=== PATIENT | male | born 1985 | race Caucasian/White ===

== ENCOUNTER → 2019-07-19 10:05 | Outpatient (CLI) | payer SELFPAY ==
[2019-07-19 10:42] LABS: Influenza A - CEPHEID Flu A NEGATIVE (NEGATIVE); Influenza B - CEPHEID Flu B NEGATIVE (NEGATIVE)
== END ==
PROVIDERS: Visit Provider Physician Assistant
DX: R05 Cough (principal)
CPT/HCPCS: 87502

== ENCOUNTER 2019-11-28 14:31 | Emergency (ER) | payer SELFPAY ==
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
[2019-11-28 14:41] VITALS: PULSE 72
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
[2019-11-28] MEDS: CYCLOBENZAPRINE 10 MG TABLET PO (15:45)
[2019-11-28] MEDS: ACETAMINOPHEN 325 MG TABLET 650 MG PO (15:45)
[2019-11-28] MEDS: IBUPROFEN 400 MG TABLET 800 MG PO (15:45)
[2019-11-28] MEDS: LIDOCAINE PATCH 1 EACH ADH..PATCH TOP (15:45)
[2019-11-28 15:52] LABS: Bacteria Urine Occasional (0-1); Culture Indicated Urine Cult Not Indicated; Granular Casts Urine 5-10/LPF; Hyaline Casts Urine 1-5/LPF; Mucus Urine 1+ (Negative); RBC Urine 0-1/HPF (0-5/HPF); Squamous Epithelial Cell Urine 0-1 /HPF (0-5/HPF); WBC Urine 1-5/HPF (0-5/HPF)
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
--- NOTE | 2019-11-28 17:23 | PC.NURSE ---
Teaching done on splint usage and things to look out for. Pt and spouse verbalizes understanding. Given opportunity to ask questions and denies concerns at this time.
[2019-11-28] MEDS: CYCLOBENZAPRINE 10 MG PREPACK 1 BOTTLE MISC (17:58)
[2019-11-28] MEDS: HYDROCODONE/ACET 5/325 PREPACK 1 BOTTLE MISC (17:58)
[2019-11-28 18:08] VITALS: BP 122/70; PULSE 72; RESP 16; O2SAT 99
== END 2019-11-28 18:10 | disposition home or self-care (01) ==
PROVIDERS: Emergency Provider Nurse Practitioner Family
DX: S82.831A Other fracture of upper and lower end of right fibula, initial encounter for closed fracture (principal); S22.089A Unspecified fracture of T11-T12 vertebra, initial encounter for closed fracture; V29.9XXA Motorcycle rider (driver) (passenger) injured in unspecified traffic accident, initial encounter
CPT/HCPCS: 29515; 72072; 72100; 73610; 81003; 81015; 99284